=== PATIENT | male | born 1990 | race Caucasian/White ===

== ENCOUNTER 2018-01-27 21:31 | Inpatient (IN) | payer BC ==
--- NOTE | 2018-01-27 22:21 | EDM.PDOC ---
ED HPI GENERAL MEDICAL PROBLEM - General Chief Complaint: Abdominal Pain Stated Complaint: ABDOMINAL PAIN Time Seen by Provider: 01/27/18 21:55 Source of Information: Reports: Patient, Family History Limitations: Reports: No Limitations - History of Present Illness INITIAL COMMENTS - FREE TEXT/NARRATIVE: 27-year-old normally healthy male developed upper abdominal pain 6 hours ago, and over time has become more intense and localized into the right lower quadrant. He's developed peritoneal irritation and is now starting to run a fever. No nausea or vomiting, no urinary symptoms. Onset: Gradual Duration: Hour(s): (The last 6 or 7 hours) Quality: Reports: Burning, Stabbing Severity: Moderate Worsens with: Reports: Movement Associated Symptoms: Reports: Fever/Chills Treatments RECOVERER: Reports: Other (see below) Other Treatments RECOVERER: Tums Abdomen Pain Score (Numeric/FACES): 4 - Related Data Allergies Allergy/AdvReac Type Severity Reaction Status Date / Time No Known Allergies Allergy Verified 01/27/18 21:54 Home Meds: Home Meds NK [No Known Home Meds] 11/02/16 [History] Past Medical History HEENT History: Reports: Otitis Media Musculoskeletal History: Reports: Fracture, Other (See Below) Other Musculoskeletal History: fracture ankle childhood Neurological History: Reports: Concussion Endocrine/Metabolic History: Reports: Obesity/BMI 30+ - Infectious Disease History Infectious Disease History: Reports: C-Difficile, Other (See Below) Other Infectious Disease History: staph infection - Past Surgical History HEENT Surgical History: Reports: Adenoidectomy, Myringotomy w Tube(s) GI Surgical History: Reports: Hernia Repair/Other Male Surgical History: Reports: Vasectomy Social & Family History - Tobacco Use Smoking Status *Q: Never Smoker Second Hand Smoke Exposure: No - Caffeine Use Caffeine Use: Reports: Energy Drinks - Recreational Drug Use Recreational Drug Use: No ED ROS GENERAL - Review of Systems Review Of Systems: See Below Constitutional: Reports: Fever. Denies: Chills HEENT: Reports: No Symptoms Respiratory: Reports: No Symptoms Cardiovascular: Reports: No Symptoms GI/Abdominal: Reports: Abdominal Pain : Reports: No Symptoms Musculoskeletal: Reports: No Symptoms Skin: Reports: No Symptoms ED EXAM, GI/ABD - Physical Exam Exam: See Below Exam Limited By: No Limitations General Appearance: Alert, Anxious Eyes: Bilateral: Normal Appearance Respiratory/Chest: No Respiratory Distress, Lungs Clear Cardiovascular: Regular Rate, Rhythm GI/Abdominal Exam: Guarding (Patient has guarding and rebound tenderness in the right lower quadrant), Rebound Neurological: Alert, Oriented Course - Vital Signs Last Recorded V/S: Last Vital Signs Temp 100.2 F 01/27/18 23:30 Pulse 108 H 01/27/18 23:30 Resp 20 01/27/18 23:30 BP 134/109 H 01/27/18 23:30 Pulse Ox 96 01/27/18 23:30 - Orders/Labs/Meds Orders: Active Orders 24 hr Category Date Time Status Abdomen Pelvis wo Cont [CT] Stat Exams 01/27/18 22:13 Taken Sodium Chloride 0.9% [Normal Saline] 1,000 ml Med 01/27/18 23:15 Active IV ASDIRECTED Medication Orders Sodium Chloride (Normal Saline) 1,000 mls @ 250 mls/hr IV ASDIRECTED DONI Last Admin: 01/27/18 23:12 Dose: 250 mls/hr Labs: Laboratory Tests 01/27/18 01/27/18 Range/Units 22:13 22:13 WBC 17.9 H (4.5-11.0) K/uL RBC 4.82 (4.30-5.90) M/uL Hgb 14.8 (12.0-15.0) g/dL Hct 41.2 (40.0-54.0) % MCV 86 (80-98) fL MCH 31 (27-31) pg MCHC 36 (32-36) % Plt Count 242 (150-400) K/uL Neut % (Auto) 75 H (36-66) % Lymph % (Auto) 17 L (24-44) % [place] % (Auto) 7 H (2-6) % Eos % (Auto) 1 L (2-4) % Baso % (Auto) 0 (0-1) % Sodium 141 (140-148) mmol/L Potassium 4.0 (3.6-5.2) mmol/L Chloride 104 (100-108) mmol/L Carbon Dioxide 25 (21-32) mmol/L Anion Gap 11.6 (5.0-14.0) mmol/L BUN 24 H (7-18) mg/dL Creatinine 1.3 (0.8-1.3) mg/dL Est Cr Clr Drug Dosing 94.75 mL/min Estimated GFR (MDRD) > 60 (>60) Glucose 87 (74-106) mg/dL Calcium 8.8 (8.5-10.1) mg/dL Meds: Medications Generic Name Dose Route Start Last Admin Trade Name Stacy PRN Reason Stop Dose Admin Sodium Chloride 1,000 mls @ 250 mls/hr 01/27/18 23:15 01/27/18 23:12 Normal Saline IV 250 mls/hr ASDIRECTED DONI Administration Discontinued Medications Generic Name Dose Route Start Last Admin Trade Name Stacy PRN Reason Stop Dose Admin Bupivacaine HCl Confirm 01/27/18 23:36 Marcaine 0.5% Administered 01/27/18 23:37 Dose 50 ml .ROUTE .STK-MED ONE Fentanyl Citrate Confirm 01/27/18 23:39 Fentanyl Administered 01/27/18 23:40 Dose 500 mcg .ROUTE .STK-MED ONE Cefoxitin Sodium 2 gm/ Sodium 50 mls @ 100 mls/hr 01/27/18 23:26 01/27/18 23: 33 Chloride IV 01/27/18 23:55 100 mls/hr ONETIME ONE Administration Lidocaine/Epinephrine Confirm 01/27/18 23:36 Xylocaine 1% With Epinephrine 1:100,000 Administered 01/27/18 23:37 Dose 50 ml .ROUTE .STK-MED ONE Ondansetron HCl 4 mg 01/27/18 23:16 01/27/18 23:22 Zofran IVPUSH 01/27/18 23:17 4 mg ONETIME ONE Administration - Re-Assessments/Exams Free Text/Narrative Re-Assessment/Exam: 01/27/18 22:20 CBC and BMP were obtained as well as a CT of the abdomen without contrast. 01/27/18 23:00 White count was 17,900, CT scan confirmed early appendicitis. An IV was started and Dr. Johnson was consulted and is coming in to see the patient. Departure - Departure Time of Disposition: 23:52 Disposition: Admitted As Inpatient 64 Condition: Good Clinical Impression: Appendicitis Qualifiers: Appendicitis type: acute appendicitis Acute appendicitis type: with localized peritonitis Qualified Code(s): K35.3 - Acute appendicitis with localized peritonitis - Discharge Information - My Orders Last 24 Hours: My Active Orders 01/27/18 22:13 Abdomen Pelvis wo Cont [CT] Stat 01/27/18 23:15 Sodium Chloride 0.9% [Normal Saline] 1,000 ml IV ASDIRECTED - Assessment/Plan Last 24 Hours: My Active Orders 01/27/18 22:13 Abdomen Pelvis wo Cont [CT] Stat 01/27/18 23:15 Sodium Chloride 0.9% [Normal Saline] 1,000 ml IV ASDIRECTED
[2018-01-27] MEDS ORDERED: Sodium Chloride 0.9% 1,000 ML IV SCH (23:15)
[2018-01-27] MEDS ORDERED: Ondansetron 4 MG/2 ML SDV IVPUSH ONE (23:16)
[2018-01-27] MEDS ORDERED: cefOXitin 2 GM in Sodium Chloride 0.9% 50 ML IV ONE (23:26)
[2018-01-27] MEDS ORDERED: Bupivacaine 0.5% 50 ML MDV ONE (23:36)
[2018-01-27] MEDS ORDERED: Lidocaine 1% with EPINEPHrine 1:100,000 50 ML MDV ONE (23:36)
[2018-01-28] MEDS ORDERED: Neostigmine Methylsulfate 1 MG/ML 5 ML Syringe ONE (00:22)
[2018-01-28] MEDS ORDERED: Rocuronium 50 MG/5 ML Vial ONE (00:22)
[2018-01-28] MEDS ORDERED: Dexamethasone 4 MG/ML SDV ONE (00:22)
[2018-01-28] MEDS ORDERED: Ondansetron 4 MG/2 ML SDV ONE (00:22)
[2018-01-28] MEDS ORDERED: Propofol 200 MG/20 ML SDV ONE ×2 (00:22→00:30)
[2018-01-28] MEDS ORDERED: Succinylcholine/Normal Saline 200 MG/10 ML Syringe ONE (00:22)
[2018-01-28] MEDS ORDERED: fentaNYL 100 MCG/2 ML SDV ONE (00:47)
[2018-01-28] MEDS ORDERED: Ondansetron 4 MG/2 ML SDV IVPUSH PRN (00:53)
[2018-01-28] MEDS ORDERED: Lactated Ringers 1,000 ML IV SCH (01:00)
[2018-01-28] MEDS: fentaNYL 100 MCG/2 ML SDV IVPUSH PRN ×6 (01:18→07:34)
--- NOTE | 2018-01-28 08:20 | OR ---
DATE OF PROCEDURE: 01/28/2018 PREOPERATIVE DIAGNOSIS: Acute appendicitis. POSTOPERATIVE DIAGNOSIS: Acute nonperforated appendicitis. PROCEDURE: Laparoscopic appendectomy. SURGEON: Clovis Johnson MD ANESTHESIA: General endotracheal. INDICATION: This 27-year-old white male ate supper about 1730 last night. By 1800, he noted upper abdominal pain. He then began having waves of nausea. He felt chilled. The pain moved to his right lower quadrant, causing him to come to the emergency room. In the emergency room, he was noted to be tender in the right lower quadrant with localized peritoneal irritation signs. He had a temperature of 100. He had a white count of 17,900. CAT scan of his abdomen and pelvis is consistent with early acute appendicitis. He received Mefoxin 2 g IV and is taken to the operating room for a laparoscopic appendectomy. I counseled him for surgery, including risks and alternatives, and he gave his informed consent to proceed. DESCRIPTION OF PROCEDURE: After adequate general endotracheal anesthesia was obtained, a Durand catheter was placed. The leg compression stockings were in place and used during the entire procedure. His abdomen was prepped and draped in the usual sterile fashion. Time- out was held. An infraumbilical semicircular incision was made. Under direct vision, a 12 mm port was introduced into the abdomen through this incision. The camera was introduced into the abdomen, and the abdomen was insufflated to a pressure of 20 mmHg with carbon dioxide. No evidence of intraabdominal injury was seen. Under direct vision, 12 mm ports were placed in the right upper and left lower quadrants. The abdomen was examined. The appendix was elevated up. The distal half of it was noted to be distended, erythematous, injected with an exudate on it, consistent with acute nonperforated appendicitis. The base of the appendix was dissected free, and it was then divided with the endoscopic ROBIN using a blue load. The mesoappendix was then divided with the endoscopic ROBIN using a white load. The appendix was placed in a sample retrieval bag and elevated up through the anterior abdominal wall via the right upper quadrant port site. It was delivered from the field. The right upper quadrant port was reintroduced back into the abdomen. The right lower quadrant was irrigated and suctioned dry. Hemostasis was obtained with electrocautery. All then looked well. The fascial closure device was used to place 0 Vicryl stitches in the right upper and left lower quadrant fascial defects. After they were both placed, they were then tied down. The infraumbilical port was removed with an interrupted stitch of 0 Vicryl used to close this fascial defect. Before tying the stitch down, we evacuated as much CO2 from the abdomen as we could. This stitch was then tied down. Lidocaine 1% with epinephrine in a 50:50 mix with 0.5% Marcaine was infiltrated about all incisions. The skin incisions were closed with subcuticular stitches of 4-0 Vicryl. Dermabond was applied. The anesthesia was reversed. He was extubated and brought to the ICU, which is functioning as the recovery room tonight, in good condition having tolerated the procedure well. Clovis Johnson MD /[id number] MTDRush
[2018-01-28] MEDS ORDERED: Acetaminophen/HYDROcodone 325-5 MG Tab PO PRN (08:38)
[2018-01-28 11:12] VITALS: BP 112/64
--- NOTE | 2018-01-28 12:07 | PCM.DCSUM1 ---
Discharge Summary - Hospital Course Free Text/Narrative:: This 27 year old white male noted onset of diffuse abdominal pain after supper last night. This moved to his right lower quadrant. He experienced waves of nausea after onset of the pain. He experienced chills. He presented to the ER with a temperature of 100 oF, tenderness in his right lower quadrant, WBC of over 17,000, and a CT of his abdomen and pelvis consistent with early appendicitis. He received Mefoxin 2 grams IV and underwent a laparoscopic appendectomy very early this morning for acute non-perforated appendicitis. He currently is eating well, afebrile, feels well and wants to go home. He is discharged to home in good condition to follow up with me in about two weeks or earlier prn. - Discharge Data Discharge Date: 01/28/18 Discharge Disposition: Home, Self-Care 01 Condition: Stable - Discharge Diagnosis/Problem(s) (1) Appendicitis SNOMED Code(s): 43182361 ICD Code: K37 - UNSPECIFIED APPENDICITIS Status: Acute Current Visit: Yes Qualifiers: Appendicitis type: acute appendicitis Acute appendicitis type: with localized peritonitis Qualified Code(s): K35.3 - Acute appendicitis with localized peritonitis - Patient Summary/Data Operative Procedure(s) Performed: Laparoscopic appendectomy. Hospital Course: See above narrative. - Patient Instructions Diet: Usual Diet as Tolerated Activity: No Strenuous Activities (Two weeks. Avoid activity that causes discomfort. ) Driving, Other: Do not drive while taking narcotic pain medication. Showering/Bathing: No Tub Bathing/Swimming, Shower in AM Notify Provider of: Fever, Increased Pain, Swelling and Redness, Drainage, Nausea and/or Vomiting - Discharge Plan Home Medications: Home Meds NK [No Known Home Meds] 11/02/16 [History] Patient Handouts: Laparoscopic Appendectomy, Adult, Care After, Preventing Constipation After Surgery Forms: ED Department Discharge Referrals: Robert Calvillo MD [Primary Care Provider] - Clovis Johnson MD [Physician] - (See me in about two weeks in [facility] - Discharge Summary/Plan Comment DC Time >30 min.: Yes Discharge Summary/Plan Comment: See above narrative. - Patient Data Vitals - Most Recent: Last Vital Signs Temp 98.1 F 01/28/18 11:00 Pulse 81 01/28/18 11:00 Resp 18 01/28/18 11:00 BP 112/64 01/28/18 11:00 Pulse Ox 95 01/28/18 11:00 Weight - Most Recent: 286 lb 15.999 oz I&O - Last 24 hours: Intake & Output 01/27/18 01/28/18 01/28/18 22:59 06:59 14:59 Intake Total 937 1407 Balance 937 1407 Lab Results - Last 24 hrs: Laboratory Results - last 24 hr 01/28/18 Range/Units 04:20 WBC 13.5 H (4.5-11.0) K/uL RBC 4.92 (4.30-5.90) M/uL Hgb 14.7 (12.0-15.0) g/dL Hct 42.6 (40.0-54.0) % MCV 87 (80-98) fL MCH 30 (27-31) pg MCHC 35 (32-36) % Plt Count 253 (150-400) K/uL Med Orders - Current: Current Medications Hydrocodone Bitart/Acetaminophen ([place] 325-5 Mg) 1 - 2 tab PO Q4H PRN PRN Reason: Pain Last Admin: 01/28/18 10:21 Dose: 2 tab Fentanyl (Sublimaze) 50 mcg IVPUSH Q1H PRN PRN Reason: Pain (severe 7-10) Last Admin: 01/28/18 07:34 Dose: 50 mcg Sodium Chloride (Normal Saline) 1,000 mls @ 250 mls[facility] [place] Last Admin: 01/27/18 23:12 Dose: 250 mls/hr Lactated Ringer's (Ringers, Lactated) 1,000 mls @ 125 mls/hr [facility] [place] Last Admin: 01/28/18 01:45 Dose: 125 mls/hr Ondansetron HCl (Zofran) 4 mg IVPUSH Q6H PRN PRN Reason: Nausea/Vomiting Discontinued Medications Bupivacaine HCl (Marcaine 0.5%) Confirm Administered Dose 50 ml .ROUTE .STK-MED ONE Stop: 01/27/18 23:37 Last Admin: 01/28/18 00:45 Dose: 10 ml Dexamethasone (Dexamethasone) Confirm Administered Dose 4 mg .ROUTE .STK-MED ONE Stop: 01/28/18 00:23 Fentanyl (Sublimaze) Confirm Administered Dose 100 mcg .ROUTE .STK-MED ONE Stop: 01/28/18 00:48 Fentanyl Citrate (Fentanyl) Confirm Administered Dose 500 mcg .ROUTE .STK-MED ONE Stop: 01/27/18 23:40 Glycopyrrolate () Confirm Administered Dose 1 mg .ROUTE .STK-MED ONE Stop: 01/28/18 00:23 Cefoxitin Sodium 2 gm/ Sodium (Chloride) 50 mls @ 100 mls/hr IV ONETIME ONE Stop: 01/27/18 23:55 Last Admin: 01/27/18 23:33 Dose: 100 mls/hr Lidocaine/Epinephrine (Xylocaine 1% With Epinephrine 1:100,000) Confirm Administered Dose 50 ml .ROUTE .STK-MED ONE Stop: 01/27/18 23:37 Last Admin: 01/28/18 00:45 Dose: 10 ml Neostigmine Methylsulfate (Neostigmine) Confirm Administered Dose 5 mg .ROUTE .STK-MED ONE Stop: 01/28/18 00:23 Ondansetron HCl (Zofran) 4 mg IVPUSH ONETIME ONE Stop: 01/27/18 23:17 Last Admin: 01/27/18 23:22 Dose: 4 mg Ondansetron HCl (Zofran) Confirm Administered Dose 4 mg .ROUTE .STK-MED ONE Stop: 01/28/18 00:23 Propofol (Diprivan 20 Ml) Confirm Administered Dose 200 mg .ROUTE .STK-MED ONE Stop: 01/28/18 00:23 Rocuronium [place] (Zemuron) Confirm Administered Dose 50 mg .ROUTE .STK-MED ONE Stop: 01/28/18 00:23 Succinylcholine Chloride (Succinylcholine In Ns Pf) Confirm Administered Dose 200 mg .ROUTE .STK-MED ONE Stop: 01/28/18 00:23 *Q Meaningful Use (DIS) - VTE *Q VTE Criteria *Q: - Stroke *Q Stroke Criteria *Q: - AMI *Q AMI Criteria *Q:
== END 2018-01-28 12:30 | disposition home or self-care (01) | DRG 225 ==
LOC: JP.ED 21:31 → JP.SDS 23:06 → JP.2SS 01-28 01:40
PROVIDERS: ADMIT Surgery; ATTEND Surgery
PROC: 0DTJ4ZZ Resection of Appendix, Percutaneous Endoscopic Approach (ICD-10-PCS; principal; 2018-01-28)
DX: K35.3 Acute appendicitis with localized peritonitis (principal)
CPT/HCPCS: 36415; 74176; 80048; 85025; 85027; 96361; 96365; 96375; 99285-25; A9270-GY; J0694; J1100; J2405; J2704; J3010; J7040; J7050; J7120

== ENCOUNTER 2021-07-21 15:20 | Emergency (ER) | payer BC, OTHER ==
[2021-07-21 15:27] VITALS: BP 137/93; PULSE 100
[2021-07-21] MEDS ORDERED: Lidocaine 1% with EPINEPHrine 1:100,000 50 ML MDV SUBCUT STA (15:31)
[2021-07-21] MEDS ORDERED: Diphtheria,Pertussis(Acell),Tetanus Vaccine 0.5 ML Syringe IM ONE (15:33)
--- NOTE | 2021-07-21 15:33 | EDM.PDOC ---
ED HPI GENERAL MEDICAL PROBLEM - General Chief Complaint: Laceration Stated Complaint: SLICED HEAD ON METAL WALL BRACKET Time Seen by Provider: 07/21/21 15:25 Source of Information: Reports: Patient, RN History Limitations: Reports: No Limitations - History of Present Illness INITIAL COMMENTS - FREE TEXT/NARRATIVE: 31 yo male here with a large scalp wound from sheet metal. 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: Other (see below) (none) - Related Data Allergies Allergy/AdvReac Type Severity Reaction Status Date / Time clarithromycin [From Biaxin] Allergy Cannot Verified 07/21/21 15:46 Remember Home Meds: Home Meds NK [No Known Home Meds] 11/02/16 [History] Past Medical History HEENT History: Reports: Otitis Media Gastrointestinal History: Reports: None Genitourinary History: Reports: None Musculoskeletal History: Reports: Fracture, Other (See Below) Other Musculoskeletal History: fracture ankle childhood Neurological History: Reports: Concussion Endocrine/Metabolic History: Reports: Obesity/BMI 30+ - Infectious Disease History Infectious Disease History: Reports: C-Difficile, Other (See Below) Other Infectious Disease History: staph infection - Past Surgical History HEENT Surgical History: Reports: Adenoidectomy, Myringotomy w Tube(s) GI Surgical History: Reports: Hernia Repair/Other Male Surgical History: Reports: Vasectomy Neurological Surgical History: Reports: None Musculoskeletal Surgical History: Reports: None Dermatological Surgical History: Reports: None Social & Family History - Caffeine Use Caffeine Use: Reports: Coffee, Energy Drinks, Soda ED ROS GENERAL - Review of Systems Review Of Systems: See Below Constitutional: Reports: No Symptoms Cardiovascular: Reports: No Symptoms Skin: Reports: Wound (long, linear scalp wound at vertex) Neurological: Reports: No Symptoms Psychiatric: Reports: No Symptoms ED EXAM, SKIN/RASH Exam: See Below Exam Limited By: No Limitations General Appearance: Alert, WD/WN, No Apparent Distress Eye Exam: Bilateral Eye: Normal Inspection Ears: Hearing Grossly Normal Nose: Normal Inspection, No Blood Throat/Mouth: Normal Inspection, Normal Lips, Normal Voice, No Airway Compromise Head: Normocephalic, Other (scalp wound present) Respiratory/Chest: No Respiratory Distress Extremities: Normal Inspection Neurological: Alert, Oriented, CN II-XII Intact, Normal Cognition, No Motor/Sensory Deficits Psychiatric: Normal Affect, Normal Mood Skin: Warm, Dry, Normal Color, No Rash, Wound/Incision (linear scalp wound). No: Intact Location, Skin: Head Characteristics: Linear Associated features: Tenderness. No: Warmth, Lymphangitis ED SKIN PROCEDURES - Laceration/Wound Repair [place] Appearance: Subcutaneous, Linear, Clean Anesthetic Type: Local Local Anesthesia - Lidocaine (Xylocaine): 1% with EPI Local Anesthetic Volume: Other (8) Skin Prep: Saline Saline Irrigation (cc's): 60 Exploration/Debridement/Repair: Wound Explored Closed with: [place] (8) Lac/Wound length In cm: 7 Drain Placement: No Sterile Dressing Applied: None Tetanus Status Addressed: Yes Complications: No Course - Vital Signs Last Recorded V/S: Last Vital Signs Temp 36.7 C 07/21/21 15:26 Pulse 100 07/21/21 15:26 Resp 16 07/21/21 15:26 BP 137/93 H 07/21/21 15:26 Pulse Ox 93 L 07/21/21 15:26 - Orders/Labs/Meds Orders: Active Orders 24 hr Category Date Time Status Vaccines to be Administered [RC] PER UNIT ROUTINE Care 07/21/21 15:33 Active Meds: Medications Discontinued Medications Generic Name Dose Route Start Last Admin Trade Name Freq PRN Reason Stop Dose Admin Diphtheria/Tetanus/Acell Pertussis 0.5 ml 07/21/21 15:33 Diphtheria,Pertussis(Acell),Tetanus Vaccine 0.5 Ml Syringe IM 07/21/21 15:34 .ONCE ONE Lidocaine/Epinephrine 15 ml 07/21/21 15:31 Lidocaine 1% With Epinephrine 1:100,000 50 Ml Mdv SUBCUT 07/21/21 15:32 NOW STA Departure - Departure Time of Disposition: 16:00 Disposition: Home, Self-Care 01 Condition: Fair Clinical Impression: Scalp laceration Qualifiers: Encounter type: initial encounter Qualified Code(s): S01.01XA - Laceration without foreign body of scalp, initial encounter - Discharge Information *PRESCRIPTION DRUG MONITORING PROGRAM REVIEWED*: Not Applicable *COPY OF PRESCRIPTION DRUG MONITORING REPORT IN PATIENT MARIOLA: Not Applicable Instructions: Laceration Care, Adult, [id number] Referrals: PCP,None [Primary Care Provider] - Forms: ED Department Discharge Additional Instructions: Wash hair with baby shampoo. Dry scalp and apply Bacitracin ointment to the wound, repeat this twice a day. Keep wound clean for 3 days. Recheck for signs of infection. [place] out in 9-10 days. Acetaminophen as needed for pain relief. Sepsis Event Note (ED) - Focused Exam Vital Signs: Vital Signs Temp Pulse Resp BP Pulse Ox 07/21/21 15:26 36.7 C 100 16 137/93 H 93 L - My Orders Last 24 Hours: My Active Orders 07/21/21 15:33 Vaccines to be Administered [RC] PER UNIT ROUTINE - Assessment/Plan Last 24 Hours: My Active Orders 07/21/21 15:33 Vaccines to be Administered [RC] PER UNIT ROUTINE
== END 2021-07-21 16:04 | disposition home or self-care (01) ==
LOC: JP.ED 15:20
DX: S01.01XA Laceration without foreign body of scalp, initial encounter (principal); E66.9 Obesity, unspecified; Z68.37 Body mass index [BMI] 37.0-37.9, adult; Z23 Encounter for immunization; Z88.1 Allergy status to other antibiotic agents; W20.8XXA Other cause of strike by thrown, projected or falling object, initial encounter
CPT/HCPCS: 12002; 90471; 90715; 99283-25

== ENCOUNTER 2021-11-25 11:10 | Emergency (ER) | payer BC ==
[2021-11-25 11:47] VITALS: BP 117/76; PULSE 88
[2021-11-25] MEDS ORDERED: Bacitracin Oint 1 GM U/D Packet TOP ONE (12:26)
[2021-11-25] MEDS ORDERED: Lidocaine 1% with EPINEPHrine 1:100,000 50 ML MDV SUBCUT STA (12:26)
--- NOTE | 2021-11-25 12:31 | EDM.PDOC ---
ED HPI GENERAL MEDICAL PROBLEM - General Chief Complaint: Laceration Stated Complaint: CUT R HAND Time Seen by Provider: 11/25/21 12:23 Source of Information: Reports: Patient, Family, RN Notes Reviewed History Limitations: Reports: No Limitations - History of Present Illness INITIAL COMMENTS - FREE TEXT/NARRATIVE: 31-year-old gentleman presents emergency department today with a laceration to his right hand it is on the palmar surface in between his pointer finger and his middle finger he has no functional complaints, he injured himself when he accidentally hit a soup can lid Right Finger-Index Pain Score (Numeric/FACES): 2 - Related Data Allergies Allergy/AdvReac Type Severity Reaction Status Date / Time clarithromycin [From Biaxin] Allergy Cannot Verified 11/25/21 11:51 Remember Home Meds: Home Meds traZODone 100 mg PO BEDTIME 11/25/21 [History] Past Medical History HEENT History: Reports: Otitis Media Musculoskeletal History: Reports: Fracture, Other (See Below) Other Musculoskeletal History: fracture ankle childhood Neurological History: Reports: Concussion Endocrine/Metabolic History: Reports: Obesity/BMI 30+ - Infectious Disease History Infectious Disease History: Reports: C-Difficile, Other (See Below) Other Infectious Disease History: staph infection - Past Surgical History HEENT Surgical History: Reports: Adenoidectomy, Myringotomy w Tube(s) GI Surgical History: Reports: Hernia Repair/Other Male Surgical History: Reports: Vasectomy Neurological Surgical History: Reports: None Social & Family History - Tobacco Use Tobacco Use Status *Q: Never Tobacco User - Caffeine Use Caffeine Use: Reports: Coffee - Recreational Drug Use Recreational Drug Use: No ED ROS GENERAL - Review of Systems Review Of Systems: See Below Constitutional: Reports: No Symptoms Skin: Reports: Wound ED EXAM, SKIN/RASH Exam: See Below Text/Narrative:: Examination the wound he does have approximately 2 cm laceration palmar surface right hand between digits 2 and 3, full range of motion of all digits sensation is intact radial pulses +2 ED SKIN PROCEDURES - Laceration/Wound Repair Right Hand Appearance: Subcutaneous, Linear Distal NVT: Neuro & Vascular Intact, No Tendon Injury Anesthetic Type: Local Local Anesthesia - Lidocaine (Xylocaine): 1% with EPI Local Anesthetic Volume: 3cc Skin Prep: Saline Saline Irrigation (cc's): 60 Exploration/Debridement/Repair: Wound Explored, In a Bloodless Field, Explored to Base Closed with: Sutures Lac/Wound length In cm: 2 Suture Size: 4-0 # of Sutures: 5 Suture Type: Nylon Sterile Dressing Applied: Nurse Tetanus Status Addressed: Yes Complications: No Course - Vital Signs Last Recorded V/S: Last Vital Signs Temp 98.0 F 11/25/21 11:50 Pulse 88 11/25/21 11:50 Resp 16 11/25/21 11:50 BP 117/76 11/25/21 11:50 Pulse Ox 97 11/25/21 11:50 - Orders/Labs/Meds Meds: Medications Discontinued Medications Generic Name Dose Route Start Last Admin Trade Name Freq PRN Reason Stop Dose Admin Bacitracin 1 dose 11/25/21 12:26 11/25/21 12:40 Bacitracin Oint 1 Gm U/D Packet TOP 11/25/21 12:27 1 dose ONETIME ONE Administration Lidocaine/Epinephrine 20 ml 11/25/21 12:26 11/25/21 12:41 Lidocaine 1% With Epinephrine 1:100,000 50 Ml Mdv SUBCUT 11/25/21 12:27 20 ml NOW STA Administration Departure - Departure Time of Disposition: 12:50 Disposition: Home, Self-Care 01 Condition: Good Clinical Impression: Laceration of right hand Qualifiers: Encounter type: initial encounter Foreign body presence: without foreign body Qualified Code(s): S61.411A - Laceration without foreign body of right hand, initial encounter - Discharge Information Instructions: Laceration Care, Adult Referrals: Jessie Banda DO [Primary Care Provider] - Forms: ED Department Discharge Additional Instructions: Follow wound care instruction sheet, suture removal in 10 days, follow-up with your primary care or return to the emergency department for suture removal Sepsis Event Note (ED) - Evaluation Sepsis Screening Result: No Definite Risk - Focused Exam Vital Signs: Vital Signs Temp Pulse Resp BP Pulse Ox 11/25/21 11:50 98.0 F 88 16 117/76 97 11/25/21 11:45 98.0 F 88 16 117/76 97 - Assessment/Plan Plan: Assessment Acuity = acute Site and laterality = 2 cm laceration right hand Etiology = trauma with a soup can Manifestations = none Location of injury = Home Lab values = none Plan Tetanus is up-to-date, suture removal in 10 days follow wound care instruction sheet This note was dictated using [employer] recognition software please call with any questions on syntax or grammar.
== END 2021-11-25 13:10 | disposition home or self-care (01) ==
LOC: JP.ED 11:10
DX: S61.411A Laceration without foreign body of right hand, initial encounter (principal); E66.9 Obesity, unspecified; Z68.37 Body mass index [BMI] 37.0-37.9, adult; Z88.1 Allergy status to other antibiotic agents; W22.8XXA Striking against or struck by other objects, initial encounter
CPT/HCPCS: 12001; 99282-25